=== PATIENT | female | born 1940 | race Caucasian/White ===

== ENCOUNTER 2020-02-26 18:37 | Inpatient (IN) | payer MEDICARE, MEDICAID, OTHER ==
[2020-02-26] MEDS ORDERED: Ketamine 50 MG/ML (10ML VIAL) ONE (18:44)
[2020-02-26] MEDS ORDERED: Rocuronium Bromide 50 MG/5 ML VIAL ONE ×2 (18:44→18:46)
[2020-02-26] MEDS ORDERED: Norepinephrine 8 MG/0.9% NS 250 ML ONE (19:02)
[2020-02-26 19:20] LABS: Actual Bicarbonate (HCO3a) 14.8 mEq/L (22-28); Analyzer IN Cardio ER; Base Excess (BEa) -14.2 mEq/L (-2.0 to +3.0); CO2 Tension 47.4 mmHg (35.0-45.0); Calcium, Ionized 0.99 mmol/L (1.12-1.30); Carboxyhemoglobin (COHb) 1.7 gm% (0.0-3.0); Hemoglobin (Hb) 11.1 g/dL (12.0-16.0); O2 Tension (PaO2), arterial 33.6 mmHg (> 60.0); Potassium - ABG Lab 4.77 mmol/L (3.70-5.30); pH, Arterial 7.11 (7.35-7.45)
[2020-02-26 19:21] LABS: Puncture Site LBRACHIAL
--- NOTE | 2020-02-26 19:28 | RAD ---
Exam: Chest one view HISTORY:Central line placement Comparison: 06/05/2014 FINDINGS: Lines and tubes: Endotracheal tube just beyond the clavicle. Nasogastric tube extends beyond the diap hragm. Distal tip is not seen. Right-sided vascular catheter appears to terminate in the right atrium. Cardiac silhouette:Enlarged Pacemaker: Right-sided transvenous pacing device with lead positioned over the right atrium, right ve ntricle and coronary sinus Aorta: Unremarkable Pulmonary vessels: Slightly prominent Costophrenic angles: Small left-sided effusion LUNGS: Patchy linear opacities. Pneumothorax: No pneumothorax Osseous abnormalities: None IMPRESSION: 1. Lines and tubes as above. 2. Volume overload. 3. No pneumothorax
[2020-02-26 19:32] LABS: Hemoglobin 9.5 g/dL (12.0-16.0); Mean Corpuscular HGB CONC 32.3 g/dL (32.0-36.0); Mean Corpuscular Hemoglobin 31.5 pg (27.0-31.0); Mean Corpuscular Volume 97.5 fL (78.0-98.0); Mean Platelet Volume 9.9 fL (7.4-10.4); Platelet Count 168 thou/uL (130-400); RBC Distribution Width 13.9 % (11.5-14.5); Red Blood Cell (RBC) Count 3.02 mill/uL (4.20-5.40); White Blood Cell (WBC) Count 7.1 thou/uL (4.8-10.8)
[2020-02-26 19:49] LABS: Band 37 % (5-11); Lymphocytes 13 % (21-51); MDiff Complete? YES; Metamyelocyte 10 % (0-0); Monocytes 7 % (0-10); Neutrophil 33 % (42-75); Ovalocytes SLIGHT = 2-5 cells (100X) (0-1/hpf); Platelet Morphology Comment Appears Adequate; Polychromasia SLIGHT = 2-3 cells (100X) (0-2/hpf)
[2020-02-26 19:51] LABS: ALT (SGPT) 22 U/L (8-55); AST (SGOT) 55 U/L (5-34); Albumin 2.1 g/dL (3.4-4.8); Alkaline Phosphatase 55 U/L (40-110); Anion Gap 16 mmol/L (10-20); BUN (Urea Nitrogen) 52 mg/dL (9.8-20.1); Bilirubin, Total 0.7 mg/dL (0.2-1.2); Calc. Creatinine Clearance 0 mL/min (70-130); Carbon Dioxide 10 mmol/L (23-31); Chloride 118 mmol/L (98-107); Estimated GFR-MDRD 29; Globulin 1.4 g/dL (2.4-3.5); Glucose 79 mg/dL (83-110); Potassium 3.9 mmol/L (3.5-5.1); Protein, Total 3.5 g/dL (6.0-8.3); Sodium 140 mmol/L (136-145)
[2020-02-26 19:54] LABS: Calcium 5.2 mg/dL (7.8-10.44)
[2020-02-26] MEDS ORDERED: Calcium Chloride 1 GM/10 ML Abboject SYRINGE ONE (20:02)
--- NOTE | 2020-02-26 20:03 | CT ---
Exam: Head CT without contrast HISTORY: Vomiting. Altered mental status COMPARISON: 06/05/2014 FINDINGS: Hemorrhage: No intraparenchymal hemorrhage or extra-axial hematoma. Brain parenchyma: Encephalomalacia and gliosis due to remote left MCA distribution infarct. Remainder the cerebrum demonstrates preservation of cortical chavez-white matter differentiation.White matter hypodensities due to chronic small vessel ischemic change. Ventricular system: Ventricles and sulci are patent and symmetric. Calvarium: Intact. Sinuses and mastoid air cells: Adequate aeration. IMPRESSION: No acute intracranial process.
[2020-02-26] MEDS ORDERED: DOPamine 400 MG/D5W 250 ML 250 ML ONE (20:07)
[2020-02-26] MEDS ORDERED: Azithromycin 500 MG VIAL ONE (20:14)
[2020-02-26] MEDS ORDERED: Vancomycin 1 GM/200 ML BAG ONE (20:14)
[2020-02-26] MEDS ORDERED: Calcium Chloride 13.6 MEQ in Sodium Chloride 0.9% 100 ML IVPB SCH (20:15)
[2020-02-26 20:37] LABS: CKMB 7.6 ng/mL (0-6.6)
--- NOTE | 2020-02-26 20:51 | PDOC.HHP ---
Hospitalist HPI - History of Present Illness Unresponsive History of Present Illness: Patient with PMH of HTN, HLD, DM, CHF, CKD, CVA, AF presents to ED for evaluation of AMS. Unable to obtain any history from patient as she is currently sedated. HPI obtained from ED provider and medical record. Patient with unknown last time seen normal. At arrival to ED she is found to be unresponsive, hypoxic, hypothermic and hypotensive. Per discussion with ED provider family had indicated that she was in her usual state of health with no recent illness or known complaints. Initial ED evaluation reveals CBC with no leukocytosis WBC of 7.1, anemia of 9.5 /29.5, BUN 52, Scr 1.68, lactic acid is elevated at 5.8, troponin elevated at 2.37, BNP markedly elevated at >6000, ABG shows Ph of 7.11, Pa O2 of 33.6, CO2 of 47.4. Chest x-ray show evidence of fluid overload but no clear evidence of PNA. EKG shows V-paced rhythm. ED Course: Intubated, sedated, received IVF resuscitation, broad spectrum antibiotics. 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 - Social History Living Situation: Alf - Exam General Appearance: ill appearing (Intubated, sedated, toxic appearing) Respiratory: no rales, no ronchi, normal chest expansion Gastrointestinal: soft, no guarding Extremities: no edema Skin: no rashes Hospitalist Results - Labs Result Diagrams: 02/26/20 19:04 02/26/20 19:04 Lab results: WBC 7.1 thou/uL (4.8-10.8) 02/26/20 19:04 Hgb 9.5 g/dL (12.0-16.0) L 02/26/20 19:04 Hct 29.5 % (36.0-47.0) L 02/26/20 19:04 MCV 97.5 fL (78.0-98.0) 02/26/20 19:04 Plt Count 168 thou/uL (130-400) 02/26/20 19:04 Band Neuts % (Manual) 37 % (5-11) H 02/26/20 19:04 ABG pH 7.11 (7.35-7.45) L* 02/26/20 19:08 ABG pCO2 47.4 mmHg (35.0-45.0) H 02/26/20 19:08 ABG pO2 33.6 mmHg (> 60.0) L* 02/26/20 19:08 Sodium 140 mmol/L (136-145) 02/26/20 19:04 Potassium 3.9 mmol/L (3.5-5.1) 02/26/20 19:04 Chloride 118 mmol/L (98-107) H 02/26/20 19:04 Carbon Dioxide 10 mmol/L (23-31) L 02/26/20 19:04 BUN 52 mg/dL (9.8-20.1) H 02/26/20 19:04 Creatinine 1.68 mg/dL (0.6-1.1) H 02/26/20 19:04 Glucose 79 mg/dL (83-110) L 02/26/20 19:04 Lactic Acid 5.8 mmol/L (0.5-2.2) H* 02/26/20 19:31 Calcium 5.2 mg/dL (7.8-10.44) L* 02/26/20 19:04 Total Bilirubin 0.7 mg/dL (0.2-1.2) 02/26/20 19:04 AST 55 U/L (5-34) H 02/26/20 19:04 ALT 22 U/L (8-55) 02/26/20 19:04 Alkaline Phosphatase 55 U/L (40-110) 02/26/20 19:04 CK-MB (CK-2) 7.6 ng/mL (0-6.6) H* 02/26/20 19:04 Troponin I 2.374 ng/mL (< 0.028) H* 02/26/20 19:04 B-Natriuretic Peptide 6722.9 pg/mL (0-100) H 02/26/20 19:04 Serum Total Protein 3.5 g/dL (6.0-8.3) L 02/26/20 19:04 Albumin 2.1 g/dL (3.4-4.8) L 02/26/20 19:04 - Radiology Interpretation CT scan - head Status: image reviewed by me (No acute pathology) Hospitalist H&P A/P - Plan Plan: Problem List 1.Altered mental status 2.Possible septic shock 3.Respiratory failure with hypoxia 4.Elevated troponin likely due to demand ischemia 5.Renal failure of unknown chronicity Assessment/Plan Presents with AMS likely multifactorial in setting of acute respiratory failure , possible septic shock of unclear source. Per discussion with ED provider no high risk exposures for COVID 19. Differentials include NSTEMI, PE vs others. Admit patient to ICU Continue with full support as patient remains full code Continue with ventilator support & sedation Continue with Levaquin and Vancomycin per protocol Continue with IVFs as no clinical evidence of florid fluid overload Awaiting blood cultures, urinalysis and COVID 19 testing Trend lactic acid per protocol Suspecting renal failure is due to sepsis/hypotension Trend troponin; suspecting demand Check echocardiogram Pending troponin trending and clinical progression will consider anticoagulation Pulmonary team consulted for help with ventilator management Pending progression will consider ID & cardiology consultation
[2020-02-26] MEDS ORDERED: Ventilator Sedation Protocol 1 EACH FS SCH (21:13)
[2020-02-26] MEDS ORDERED: Propofol BOLUS 1,000 MG/100 ML VIAL IV PRN (21:33)
[2020-02-26] MEDS ORDERED: fentaNYL Citrate/PF 2,000 MCG in Sodium Chloride 0.9% 60 ML IV SCH (21:33)
[2020-02-26] MEDS ORDERED: Lorazepam 2 MG/ML VIAL SLOW IVP PRN (21:33)
[2020-02-26] MEDS ORDERED: DISCONTINUE PREVIOUS NARCOTIC PAIN MEDICATIONS AND BENZODIAZEPINES FS SCH (21:33)
[2020-02-26] MEDS ORDERED: Morphine 2 MG/ML SYRINGE SLOW IVP PRN (21:33)
[2020-02-26] MEDS ORDERED: Fentanyl BOLUS 250 ML IVPB PRN (21:33)
[2020-02-26] MEDS ORDERED: Propofol 1,000 MG/100 ML VIAL IV PRN (21:33)
[2020-02-26 21:36] LABS: Actual Bicarbonate (HCO3a) 14.2 mEq/L (22-28); Analyzer IN Cardio ER; Base Excess (BEa) -14.9 mEq/L (-2.0 to +3.0); CO2 Tension 46.4 mmHg (35.0-45.0); Calcium, Ionized 0.93 mmol/L (1.12-1.30); Carboxyhemoglobin (COHb) 1.4 gm% (0.0-3.0); Hemoglobin (Hb) 11.6 g/dL (12.0-16.0); Potassium - ABG Lab 5.24 mmol/L (3.70-5.30)
[2020-02-26 21:37] LABS: O2 Tension (PaO2), arterial 44.1 mmHg (> 60.0); Puncture Site LFA
[2020-02-26 22:13] VITALS: BMI 27.3
[2020-02-26 22:45] LABS: Bacteria/HPF 4+ HPF (None Seen); Bilirubin 1+ (Negative); Blood, Urine Trace (Negative); Clarity Extra Turbid (Clear); Glucose, Urine (Dipstick) Normal (Negative); Leukocyte 250 Leu/uL (Negative); Nitrite Negative (Negative); Protein, Urine (Dipstick) 100 mg/dL (Neg-Trace); RBC/HPF None Seen HPF (0-3); Renal Epithelial 0-3 HPF (None Seen); Squamous Epithelial 0-3 HPF (0-3)
[2020-02-26] MEDS: Sodium Chloride 0.9% 1,000 ML IV SCH (22:49)
[2020-02-26] MEDS ORDERED: Norepinephrine 8 MG/0.9% NS 250 ML IVPB SCH (23:00)
[2020-02-26 23:59] LABS: CKMB 14.8 ng/mL (0-6.6)
[2020-02-27 02:01] LABS: Critical Call Chem Troponin I RESULT DECREASING; Troponin I 2.448 ng/mL (< 0.028)
[2020-02-27] MEDS: Sodium Chloride 0.9% 1,000 ML IV SCH (03:28)
[2020-02-27 05:30] LABS: Albumin 2.6 g/dL (3.4-4.8)
[2020-02-27 05:32] LABS: Chloride 113 mmol/L (98-107); Potassium 5.8 mmol/L (3.5-5.1); Sodium 136 mmol/L (136-145)
[2020-02-27 05:33] LABS: Globulin 2.2 g/dL (2.4-3.5)
[2020-02-27 05:36] LABS: Alkaline Phosphatase 78 U/L (40-110); Calc. Creatinine Clearance 23 mL/min (70-130); Estimated GFR-MDRD 20
[2020-02-27 05:38] LABS: AST (SGOT) 251 U/L (5-34); Magnesium 1.8 mg/dL (1.6-2.6)
[2020-02-27 05:39] LABS: ALT (SGPT) 142 U/L (8-55)
[2020-02-27 05:44] LABS: Bilirubin, Total 1.4 mg/dL (0.2-1.2); Carbon Dioxide Less than 8 mmol/L (23-31); Glucose 46 mg/dL (83-110); Protein, Total 4.8 g/dL (6.0-8.3)
[2020-02-27 05:46] LABS: Critical Call Chem Troponin I RESULT DECREASING
[2020-02-27 05:49] LABS: Band 16 % (5-11); Hemoglobin 13.1 g/dL (12.0-16.0); Lymphocytes 43 % (21-51); MDiff Complete? YES; Mean Corpuscular HGB CONC 29.5 g/dL (32.0-36.0); Mean Corpuscular Hemoglobin 29.8 pg (27.0-31.0); Mean Platelet Volume 10.4 fL (7.4-10.4); Metamyelocyte 15 % (0-0); Monocytes 9 % (0-10); Neutrophil 17 % (42-75); Platelet Count 202 thou/uL (130-400); Platelet Morphology Comment Appears Adequate; RBC Distribution Width 14.3 % (11.5-14.5); RBC Morphology Normal; White Blood Cell (WBC) Count 7.1 thou/uL (4.8-10.8)
[2020-02-27 06:08] LABS: CKMB 14.5 ng/mL (0-6.6); Critical Call CKMB RESULT DECREASING
[2020-02-27] MEDS ORDERED: Sodium Bicarbonate 150 MEQ in Dextrose 5% in Water 1,000 ML IV SCH (06:30)
[2020-02-27] MEDS ORDERED: Dextrose 50% Abboject 50 ML SYRINGE ONE (06:45)
[2020-02-27 07:57] LABS: Actual Bicarbonate (HCO3a) 7.4 mEq/L (22-28); Base Excess (BEa) -20.9 mEq/L (-2.0 to +3.0); Calcium, Ionized 0.94 mmol/L (1.12-1.30); Carboxyhemoglobin (COHb) 1.5 gm% (0.0-3.0); Hemoglobin (Hb) 11.2 g/dL (12.0-16.0); Potassium - ABG Lab 5.32 mmol/L (3.70-5.30)
--- NOTE | 2020-02-27 08:12 | CON ---
DATE OF CONSULTATION: 02/27/2020 This is a 45 minutes of critical care time. HISTORY OF PRESENT ILLNESS: This patient is an 80-year-old female, who is a [facility] resident. She was brought to the emergency room last night with altered mental status, found to be hypoxic, hypothermic, and hypotensive. She was intubated and placed on mechanical ventilation. She was fluid resuscitated. PAST MEDICAL HISTORY: Atrial fibrillation, hypertension, and stroke. PAST SURGICAL HISTORY: She appears to had a right-sided pacemaker placed. She has also had a cardioversion in the past. It looks like she has had some sort of neurosurgery in the past in the neck region. SOCIAL HISTORY: [facility] resident. I am not sure about alcohol and tobacco use in the past. MEDICATIONS: Prior to admission not known at this time. Current inpatient medications, she is on; 1. Azithromycin. 2. Vancomycin. 3. Levofloxacin. 4. Norepinephrine. 5. Bicarbonate drip. 6. Pepcid. REVIEW OF SYSTEMS: Cannot be obtained because she is on mechanical ventilation. PHYSICAL EXAMINATION: VITAL SIGNS: Heart rate is 94, partially paced. Blood pressure 187/83, O2 saturation 97%, and respiratory rate 28. GENERAL: She is an elderly female, who is intubated. She does not appear to be sedated at this time. HEENT: Pupils are 4 mm and reactive. Oropharynx, poor dentition. There is an endotracheal tube in place. NECK: No adenopathy or JVD. LUNGS: Fairly clear bilaterally. CARDIOVASCULAR: S1 and S2. Regular, partially paced. ABDOMEN: Soft and nontender to palpation. EXTREMITIES: No clubbing, cyanosis, or edema. Peripheral pulses are palpable 2+/4 throughout. LABORATORY DATA: White blood cell count 7.1, hematocrit 44.5, and platelet count 202, with 70% neutrophils, 43% lymphocytes, and 16% bands. A pH of 7.10, pCO2 of 46, and pO2 of 44, that was obtained last night, probably a partial venous gas. Sodium 136, potassium 5.8, chloride 113, CO2 of 8, BUN 71, creatinine 2.3, glucose 46, and lactate 9.5. BNP level is 11,115.9, troponin 2.36, and CK-MB 14.5. Albumin 2.6, AST 251, and ALT 142. Her x-ray shows an ET tube in place. She has neck hardware. She has a right-sided pacemaker. ASSESSMENT: 1. The patient is presenting with acute respiratory failure probably secondary to either heart failure or sepsis. 2. Severe metabolic acidosis. 3. Hyperkalemia, which is probably precipitated by the acidosis. 4. Acute renal failure. 5. Hypoglycemia. 6. Transaminitis. RECOMMENDATION: 1. The patient's status is very critical and I believe her chances for survival are fairly poor. We will continue supportive care with the antibiotics, vasopressors, and bicarbonate drip. We will monitor her blood glucose. 2. Echocardiogram has been ordered. 3. We will try to obtain old medical records. Job ID: [id number]
[2020-02-27 08:17] LABS: pH, Arterial 7.09 (7.35-7.45)
[2020-02-27 08:18] LABS: ALV-art Gradient 510.875 (0-20); CO2 Tension 24.9 mmHg (35.0-45.0); Puncture Site LFA
[2020-02-27 08:43] LABS: Lactic Acid 11.4 mmol/L (0.5-2.2)
[2020-02-27] MEDS: Sodium Bicarbonate 150 MEQ in Dextrose 5% in Water 1,000 ML IV SCH ×2 (09:00→13:45)
[2020-02-27] MEDS ORDERED: Famotidine/PF 20 mg/2ml Vial SLOW IVP SCH (09:00)
[2020-02-27] MEDS ORDERED: Sodium Bicarb 50 MEQ/50 ML Abboject 8.4% SYRINGE ONE (09:51)
[2020-02-27] MEDS ORDERED: Sodium Bicarb 50 MEQ/50 ML Abboject 8.4% SYRINGE IVP SCH (10:00)
[2020-02-27 10:02] VITALS: TEMP 99
--- NOTE | 2020-02-27 10:18 | OP ---
DATE OF PROCEDURE: 02/27/2020 PROCEDURE PERFORMED: Femoral arterial line placement, right side. PREOPERATIVE DIAGNOSIS: Unable to measure blood pressure, the patient's septic shock. POSTOPERATIVE DIAGNOSIS: Successful right femoral line placement. ANESTHESIA: None. DESCRIPTION OF PROCEDURE: The procedure was done on consent from the patient's daughter. Right femoral area was cleansed with chlorhexidine and draped sterilely. Ultrasound was used to locate the right femoral artery. The vessel was cannulated by the modified Seldinger technique and an arterial line was placed without difficulty. Job ID: [id number]
[2020-02-27 11:31] LABS: SARS-CoV-2 MS2 Positive; SARS-CoV-2 N Gene Negative; SARS-CoV-2 S Gene Negative; SARS-CoV-2 orf1ab Negative
[2020-02-27] MEDS ORDERED: Dextrose 50% Abboject 50 ML SYRINGE IVP PRN (12:41)
[2020-02-27] MEDS ORDERED: Dextrose 5% in Water 1,000 ML IV PRN (12:41)
[2020-02-27] MEDS ORDERED: LEVOFLOXACIN IVPB PRN (13:22)
[2020-02-27] MEDS ORDERED: [UNRECOGNIZED DRUG - OTHER] IVPB PRN (13:22)
[2020-02-27 14:51] VITALS: BP 102/47
[2020-02-27 16:31] LABS: Potassium 7.6 mmol/L (3.5-5.1)
[2020-02-27] MEDS ORDERED: Azithromycin 500 MG in Sodium Chloride 0.9% 250 ML 250 ML IVPB SCH (20:00)
[2020-02-27] MEDS ORDERED: Vancomycin HCl 750 MG in Sodium Chloride 0.9% 250 ML 250 ML IVPB SCH (21:00)
--- NOTE | 2020-02-28 15:24 | EKG ---
Test Reason : Blood Pressure : / mmHG Vent. Rate : 074 BPM Atrial Rate : 070 BPM P-R Int : 000 ms QRS Dur : 102 ms QT Int : 548 ms P-R-T Axes : 000 -53 236 degrees QTc Int : 608 ms Ventricular-paced rhythm Abnormal ECG Confirmed by SOL LIVE, JENNIFER Patrick ([id number]), loan expeditor YING MATHEWS ([id number] on 02/28/2020 3:23:55 PM Referred By: Confirmed By:JENNIFER HORTON MD
[2020-03-05 15:07] LABS: BUN (Urea Nitrogen) 64 mg/dL (9.8-20.1)
== END 2020-02-27 17:33 | disposition expired | DRG 208 ==
LOC: ERS 18:37 → CCU 18:56
PROVIDERS: ADMIT Internal Medicine; ATTEND Internal Medicine
PROC: 0BH17EZ Insertion of Endotracheal Airway into Trachea, Via Natural or Artificial Opening (ICD-10-PCS; principal; 2020-02-26)
PROC: 5A1935Z Respiratory Ventilation, Less than 24 Consecutive Hours (ICD-10-PCS; 2020-02-26)
PROC: 02HV33Z Insertion of Infusion Device into Superior Vena Cava, Percutaneous Approach (ICD-10-PCS; 2020-02-26)
PROC: 3E033XZ Introduction of Vasopressor into Peripheral Vein, Percutaneous Approach (ICD-10-PCS; 2020-02-26)
PROC: 04HK33Z Insertion of Infusion Device into Right Femoral Artery, Percutaneous Approach (ICD-10-PCS; 2020-02-27)
DX: J96.01 Acute respiratory failure with hypoxia (principal); A41.9 Sepsis, unspecified organism; R65.21 Severe sepsis with septic shock; R40.2312 Coma scale, best motor response, none, at arrival to emergency department; R40.2112 Coma scale, eyes open, never, at arrival to emergency department; R40.2212 Coma scale, best verbal response, none, at arrival to emergency department; I13.0 Hypertensive heart and chronic kidney disease with heart failure and stage 1 through stage 4 chronic kidney disease, or unspecified chronic kidney disease; I24.8 Other forms of acute ischemic heart disease; E87.2 Acidosis; N17.9 Acute kidney failure, unspecified; Z66 Do not resuscitate; E78.5 Hyperlipidemia, unspecified; E11.22 Type 2 diabetes mellitus with diabetic chronic kidney disease; I50.9 Heart failure, unspecified; N18.9 Chronic kidney disease, unspecified; I48.91 Unspecified atrial fibrillation; M10.9 Gout, unspecified; E11.40 Type 2 diabetes mellitus with diabetic neuropathy, unspecified; Z20.828 Contact with and (suspected) exposure to other viral communicable diseases; E11.649 Type 2 diabetes mellitus with hypoglycemia without coma; D63.1 Anemia in chronic kidney disease; Z86.73 Personal history of transient ischemic attack (TIA), and cerebral infarction without residual deficits; Z88.0 Allergy status to penicillin; Z88.8 Allergy status to other drugs, medicaments and biological substances; Z88.1 Allergy status to other antibiotic agents
CPT/HCPCS: 31500; 36416; 36556; 51702; 70450; 71045; 80053; 81001; 82553; 82805; 83605; 83735; 83880; 84484; 85025; 87077; 87086; 87186; 87635; 93005; 93306; 94003; 96365; 96366; 96368; 96375; J0456; J1265; J1956; J3370; J3490; J7070; S0028; U0003